=== PATIENT | male | born 1945 | race Hispanic/Latino ===

== ENCOUNTER 2017-11-08 18:36 | Emergency (ER) | payer MEDICARE, MEDICAID ==
[2017-11-08] MEDS ORDERED: Meclizine HCl 25 MG TAB ONE (19:58)
[2017-11-08 20:27] LABS: Hemoglobin 12.5 g/dL (14.0-18.0); Mean Corpuscular HGB CONC 33.4 g/dL (32.0-36.0); Mean Corpuscular Volume 95.8 fL (78.0-98.0); Mean Platelet Volume 8.2 fL (7.4-10.4); Platelet Count 164 thou/uL (130-400); RBC Distribution Width 13.2 % (11.5-14.5)
[2017-11-08 20:40] LABS: CKMB 0.9 ng/mL (0-6.6); Troponin I Less than 0.010 ng/mL (< 0.028)
[2017-11-08 20:42] LABS: ALT (SGPT) 15 U/L (8-55); AST (SGOT) 25 U/L (5-34); Alkaline Phosphatase 78 U/L (40-150); Anion Gap 16 mmol/L (10-20); BUN (Urea Nitrogen) 44 mg/dL (8.4-25.7); Bilirubin, Total 0.3 mg/dL (0.2-1.2); Calc. Creatinine Clearance 0 mL/min (70-130); Calcium 9.5 mg/dL (7.8-10.44); Carbon Dioxide 32 mmol/L (23-31); Chloride 97 mmol/L (98-107); Estimated GFR-MDRD 7; Globulin 3.8 g/dL (2.4-3.5); Glucose 107 mg/dL (83-110); Potassium 5.3 mmol/L (3.5-5.1); Protein, Total 7.8 g/dL (5.8-8.1); Sodium 140 mmol/L (136-145)
[2017-11-08 20:58] LABS: Band 1 % (5-11); Eosinophils 8 % (0-10); Lymphocytes 32 % (21-51); MDiff Complete? YES; Monocytes 9 % (0-10); Neutrophil 50 % (42-75)
--- NOTE | 2017-11-08 21:25 | CT ---
NONCONTRAST CT HEAD: 11/08/17 HISTORY: Vertigo and dizziness. History of renal failure. COMPARISON: 07/11/10. FINDINGS: There is no evidence of acute infarction, hemorrhage, mass effect, or midline shift. The ventricular system is normal in size, shape and position. A mucous retention cyst is present in the right maxilla ry antrum. Mastoid air cells are clear. There has been no interval change from the prior exam. IMPRESSION: No acute intracranial abnormality is demonstrated. POS: PANFILO
== END 2017-11-08 22:36 | disposition home or self-care (01) ==
LOC: ERS 18:36
DX: R42 Dizziness and giddiness (principal); N18.6 End stage renal disease; Z99.2 Dependence on renal dialysis
CPT/HCPCS: 36415; 70450; 80053; 82553; 84484; 85025; 93005

== ENCOUNTER 2020-03-27 11:07 | Emergency (ER) | payer MEDICAID, MEDICARE, OTHER ==
[2020-03-27 23:54] LABS: SARS-CoV-2 PCR by NAA DETECTED (NotDetected)
== END 2020-03-27 12:44 | disposition home or self-care (01) ==
LOC: ERS 11:07
DX: U07.1 COVID-19 (principal); N18.6 End stage renal disease; Z99.2 Dependence on renal dialysis
CPT/HCPCS: 87635; 99283; U0003; U0005

== ENCOUNTER 2020-04-05 09:54 | Emergency (ER) | payer MEDICARE, OTHER ==
[2020-04-05] MEDS ORDERED: Acetaminophen 500 MG TAB ONE (11:45)
[2020-04-05] MEDS ORDERED: Ondansetron ODT 4 MG TAB ONE (11:45)
[2020-04-05 12:20] LABS: #Eosinphils 0.2 thou/uL (0.0-0.7); #Lymphocytes 0.8 thou/uL (1.20-3.40); #Monocytes 0.8 thou/uL (0.11-0.59); #Neutrophils 4.8 thou/uL (1.40-6.50); %Basophils 0.3 % (0.0-1.0); %Eosinophils 2.9 % (0.0-10.0); %Lymphocytes 12.8 % (21.0-51.0); Hemoglobin 12.1 g/dL (14.0-18.0); Mean Corpuscular HGB CONC 33.4 g/dL (32.0-36.0); Mean Corpuscular Hemoglobin 33.2 pg (27.0-31.0); Mean Corpuscular Volume 99.1 fL (78.0-98.0); Mean Platelet Volume 7.4 fL (7.4-10.4); Platelet Count 278 thou/uL (130-400); RBC Distribution Width 11.9 % (11.5-14.5); Red Blood Cell (RBC) Count 3.66 mill/uL (4.70-6.10); White Blood Cell (WBC) Count 6.6 thou/uL (4.8-10.8)
[2020-04-05 12:39] LABS: ALT (SGPT) 15 U/L (8-55); AST (SGOT) 22 U/L (5-34); Albumin 3.4 g/dL (3.4-4.8); Alkaline Phosphatase 62 U/L (40-110); Anion Gap 16 mmol/L (10-20); BUN (Urea Nitrogen) 36 mg/dL (8.4-25.7); Bilirubin, Total 0.7 mg/dL (0.2-1.2); Calc. Creatinine Clearance 0 mL/min (70-130); Calcium 7.9 mg/dL (7.8-10.44); Carbon Dioxide 27 mmol/L (23-31); Chloride 99 mmol/L (98-107); Globulin 3.8 g/dL (2.4-3.5); Glucose 98 mg/dL (83-110); Potassium 4.4 mmol/L (3.5-5.1); Protein, Total 7.2 g/dL (5.8-8.1); Sodium 138 mmol/L (136-145)
== END 2020-04-05 14:05 | disposition home or self-care (01) ==
LOC: ERS 09:54
DX: U07.1 COVID-19 (principal); N18.6 End stage renal disease
CPT/HCPCS: 36415; 70450; 80053; 85025; 93005; Q0162

== ENCOUNTER 2021-02-05 18:01 | Emergency (ER) | payer MEDICARE, OTHER ==
[2021-02-05 19:47] LABS: Hemoglobin 12.7 g/dL (14.0-18.0); Mean Corpuscular HGB CONC 34.3 g/dL (32.0-36.0); Mean Corpuscular Hemoglobin 34.7 pg (27.0-31.0); Mean Platelet Volume 8.6 fL (7.4-10.4); Platelet Count 125 thou/uL (130-400); RBC Distribution Width 13.4 % (11.5-14.5); Red Blood Cell (RBC) Count 3.66 mill/uL (4.70-6.10); White Blood Cell (WBC) Count 5.4 thou/uL (4.8-10.8)
[2021-02-05 19:56] LABS: ALT (SGPT) 18 U/L (8-55); AST (SGOT) 28 U/L (5-34); Albumin 3.8 g/dL (3.4-4.8); Alkaline Phosphatase 85 U/L (40-110); Anion Gap 15 mmol/L (10-20); BUN (Urea Nitrogen) 39 mg/dL (8.4-25.7); Bilirubin, Total 0.3 mg/dL (0.2-1.2); Calc. Creatinine Clearance 0 mL/min (70-130); Calcium 8.1 mg/dL (7.8-10.44); Carbon Dioxide 29 mmol/L (23-31); Chloride 102 mmol/L (98-107); Globulin 3.6 g/dL (2.4-3.5); Glucose 114 mg/dL (83-110); Potassium 5.4 mmol/L (3.5-5.1); Protein, Total 7.4 g/dL (5.8-8.1); Sodium 141 mmol/L (136-145)
[2021-02-05 20:15] LABS: Eosinophils 5 % (0-10); Lymphocytes 24 % (21-51); MDiff Complete? YES; Monocytes 14 % (0-10); Neutrophil 55 % (42-75); Reactive Lymphocytes 1 % (0-10)
[2021-02-05] MEDS ORDERED: Meclizine HCl 25 MG TAB ONE (20:41)
[2021-02-05] MEDS ORDERED: hydrALAZINE 25 MG TAB ONE (20:41)
== END 2021-02-05 21:29 | disposition home or self-care (01) ==
LOC: ERS 18:01
DX: I12.0 Hypertensive chronic kidney disease with stage 5 chronic kidney disease or end stage renal disease (principal); N18.6 End stage renal disease; R42 Dizziness and giddiness; Z99.2 Dependence on renal dialysis
CPT/HCPCS: 36415; 71045; 80053; 84484; 85025; 93005

== ENCOUNTER 2021-02-07 07:38 | Emergency (ER) | payer MEDICARE, OTHER ==
[2021-02-07] MEDS ORDERED: Ondansetron ODT 4 MG TAB ONE (07:56)
[2021-02-07 08:26] LABS: #Basophils 0.1 thou/uL (0.0-0.2); #Eosinphils 0.3 thou/uL (0.0-0.7); #Lymphocytes 1.6 thou/uL (1.20-3.40); #Monocytes 0.6 thou/uL (0.11-0.59); #Neutrophils 2.7 thou/uL (1.40-6.50); %Eosinophils 5.6 % (0.0-10.0); %Lymphocytes 30.5 % (21.0-51.0); %Monocytes 11.8 % (0.0-10.0); %Neutrophils 51.1 % (42.0-75.0); Hemoglobin 12.4 g/dL (14.0-18.0); Mean Corpuscular HGB CONC 33.5 g/dL (32.0-36.0); Mean Corpuscular Hemoglobin 34.1 pg (27.0-31.0); Mean Platelet Volume 7.7 fL (7.4-10.4); Platelet Count 124 thou/uL (130-400); RBC Distribution Width 13.2 % (11.5-14.5); Red Blood Cell (RBC) Count 3.64 mill/uL (4.70-6.10); White Blood Cell (WBC) Count 5.2 thou/uL (4.8-10.8)
[2021-02-07 08:48] LABS: ALT (SGPT) 17 U/L (8-55); AST (SGOT) 22 U/L (5-34); Albumin 3.6 g/dL (3.4-4.8); Alkaline Phosphatase 75 U/L (40-110); Anion Gap 15 mmol/L (10-20); BUN (Urea Nitrogen) 27 mg/dL (8.4-25.7); Bilirubin, Total 0.5 mg/dL (0.2-1.2); Calc. Creatinine Clearance 0 mL/min (70-130); Calcium 8.6 mg/dL (7.8-10.44); Carbon Dioxide 27 mmol/L (23-31); Chloride 98 mmol/L (98-107); Globulin 3.6 g/dL (2.4-3.5); Glucose 99 mg/dL (83-110); Potassium 4.5 mmol/L (3.5-5.1); Protein, Total 7.2 g/dL (5.8-8.1); Sodium 135 mmol/L (136-145)
[2021-02-07 10:17] LABS: Troponin I 0.018 ng/mL (< 0.028)
== END 2021-02-07 10:59 | disposition home or self-care (01) ==
LOC: ERS 07:38
DX: R11.0 Nausea (principal); R42 Dizziness and giddiness; I12.0 Hypertensive chronic kidney disease with stage 5 chronic kidney disease or end stage renal disease; N18.6 End stage renal disease; I44.0 Atrioventricular block, first degree; R61 Generalized hyperhidrosis; Z99.2 Dependence on renal dialysis; Z79.82 Long term (current) use of aspirin; Z79.899 Other long term (current) drug therapy
CPT/HCPCS: 36415; 80053; 84484; 85025; 93005; Q0162

== ENCOUNTER 2021-02-12 06:31 | Emergency (ER) | payer OTHER ==
[2021-02-12 07:58] LABS: #Basophils 0.1 thou/uL (0.0-0.2); #Eosinphils 0.2 thou/uL (0.0-0.7); #Lymphocytes 1.3 thou/uL (1.20-3.40); #Monocytes 0.5 thou/uL (0.11-0.59); #Neutrophils 2.8 thou/uL (1.40-6.50); %Basophils 1.1 % (0.0-1.0); %Eosinophils 3.7 % (0.0-10.0); %Lymphocytes 26.6 % (21.0-51.0); %Monocytes 9.5 % (0.0-10.0); Hemoglobin 12.6 g/dL (14.0-18.0); Mean Corpuscular HGB CONC 33.5 g/dL (32.0-36.0); Mean Corpuscular Hemoglobin 33.6 pg (27.0-31.0); Mean Platelet Volume 8.5 fL (7.4-10.4); Platelet Count 102 thou/uL (130-400); RBC Distribution Width 13.1 % (11.5-14.5); Red Blood Cell (RBC) Count 3.75 mill/uL (4.70-6.10); White Blood Cell (WBC) Count 4.8 thou/uL (4.8-10.8)
[2021-02-12 08:10] LABS: ALT (SGPT) 13 U/L (8-55); AST (SGOT) 22 U/L (5-34); Albumin 3.7 g/dL (3.4-4.8); Alkaline Phosphatase 72 U/L (40-110); Anion Gap 18 mmol/L (10-20); BUN (Urea Nitrogen) 35 mg/dL (8.4-25.7); Bilirubin, Total 0.6 mg/dL (0.2-1.2); Calc. Creatinine Clearance 0 mL/min (70-130); Calcium 8.1 mg/dL (7.8-10.44); Carbon Dioxide 25 mmol/L (23-31); Chloride 98 mmol/L (98-107); Globulin 3.3 g/dL (2.4-3.5); Glucose 94 mg/dL (83-110); Potassium 5.2 mmol/L (3.5-5.1); Sodium 136 mmol/L (136-145)
[2021-02-12] MEDS ORDERED: Acetaminophen 500 MG TAB ONE (09:10)
[2021-02-12] MEDS ORDERED: Meclizine HCl 25 MG TAB ONE (09:10)
[2021-02-12] MEDS ORDERED: Ibuprofen 800 MG TAB ONE (10:35)
== END 2021-02-12 10:39 | disposition home or self-care (01) ==
LOC: ERS 06:31
DX: R51.9 Headache, unspecified (principal); I12.0 Hypertensive chronic kidney disease with stage 5 chronic kidney disease or end stage renal disease; N18.6 End stage renal disease; Z99.2 Dependence on renal dialysis; Z79.899 Other long term (current) drug therapy
CPT/HCPCS: 36415; 70450; 80053; 84484; 85025; 93005

== ENCOUNTER 2021-03-26 10:37 | Emergency (ER) | payer OTHER | END 2021-03-26 13:45 | disposition home or self-care (01) | LOC: ERS 10:37 | DX: K08.89 Other specified disorders of teeth and supporting structures (principal); I12.0 Hypertensive chronic kidney disease with stage 5 chronic kidney disease or end stage renal disease; N18.6 End stage renal disease; Z99.2 Dependence on renal dialysis | CPT/HCPCS: 70450 ==

== ENCOUNTER 2021-03-28 18:15 | Emergency (ER) | payer OTHER ==
[2021-03-28] MEDS ORDERED: hydrALAZINE 20 MG/ML VIAL ONE (19:02)
[2021-03-28 20:12] LABS: #Eosinphils 0.1 thou/uL (0.0-0.7); #Lymphocytes 1.1 thou/uL (1.20-3.40); #Monocytes 0.7 thou/uL (0.11-0.59); #Neutrophils 3.1 thou/uL (1.40-6.50); %Basophils 0.1 % (0.0-1.0); %Eosinophils 2.5 % (0.0-10.0); %Lymphocytes 21.8 % (21.0-51.0); %Monocytes 14.1 % (0.0-10.0); %Neutrophils 61.5 % (42.0-75.0); Hemoglobin 11.7 g/dL (14.0-18.0); Mean Corpuscular Volume 99.9 fL (78.0-98.0); Mean Platelet Volume 8.2 fL (7.4-10.4); Platelet Count 128 thou/uL (130-400); RBC Distribution Width 12.9 % (11.5-14.5); Red Blood Cell (RBC) Count 3.67 mill/uL (4.70-6.10)
[2021-03-28 20:38] LABS: ALT (SGPT) 12 U/L (8-55); AST (SGOT) 22 U/L (5-34); Albumin 3.6 g/dL (3.4-4.8); Alkaline Phosphatase 75 U/L (40-110); Anion Gap 15 mmol/L (10-20); BUN (Urea Nitrogen) 26 mg/dL (8.4-25.7); Bilirubin, Total 0.4 mg/dL (0.2-1.2); Calc. Creatinine Clearance 0 mL/min (70-130); Calcium 8.3 mg/dL (7.8-10.44); Carbon Dioxide 27 mmol/L (23-31); Chloride 97 mmol/L (98-107); Globulin 3.2 g/dL (2.4-3.5); Glucose 114 mg/dL (83-110); Potassium 4.4 mmol/L (3.5-5.1); Protein, Total 6.8 g/dL (5.8-8.1); Sodium 135 mmol/L (136-145)
== END 2021-03-28 21:43 | disposition home or self-care (01) ==
LOC: ERS 18:15
DX: I12.0 Hypertensive chronic kidney disease with stage 5 chronic kidney disease or end stage renal disease (principal); N18.6 End stage renal disease; Z99.2 Dependence on renal dialysis
CPT/HCPCS: 36415; 80053; 85025; 93005; 96374; J0360

== ENCOUNTER 2021-04-02 18:11 | Emergency (ER) | payer OTHER ==
[2021-04-02 20:10] LABS: Mean Corpuscular HGB CONC 32.4 g/dL (32.0-36.0); Mean Corpuscular Volume 98.8 fL (78.0-98.0); Mean Platelet Volume 9.3 fL (7.4-10.4); Platelet Count 95 thou/uL (130-400); RBC Distribution Width 13.1 % (11.5-14.5); Red Blood Cell (RBC) Count 4.07 mill/uL (4.70-6.10); White Blood Cell (WBC) Count 5.9 thou/uL (4.8-10.8)
[2021-04-02 20:14] LABS: Eosinophils 5 % (0-10); Lymphocytes 20 % (21-51); MDiff Complete? YES; Monocytes 13 % (0-10); Neutrophil 62 % (42-75); Platelet Morphology Comment Appears Decreased
[2021-04-02 20:22] LABS: Albumin 3.7 g/dL (3.4-4.8)
[2021-04-02 20:23] LABS: Chloride 100 mmol/L (98-107); Potassium 5.5 mmol/L (3.5-5.1); Sodium 136 mmol/L (136-145)
[2021-04-02 20:24] LABS: Calcium 8.5 mg/dL (7.8-10.44); Glucose 104 mg/dL (83-110)
[2021-04-02 20:25] LABS: Protein, Total 7.7 g/dL (5.8-8.1)
[2021-04-02 20:26] LABS: Anion Gap 16 mmol/L (10-20); Bilirubin, Total 0.4 mg/dL (0.2-1.2); Carbon Dioxide 26 mmol/L (23-31)
[2021-04-02 20:27] LABS: Alkaline Phosphatase 79 U/L (40-110)
[2021-04-02 20:28] LABS: Calc. Creatinine Clearance 0 mL/min (70-130)
[2021-04-02 20:29] LABS: BUN (Urea Nitrogen) 29 mg/dL (8.4-25.7)
[2021-04-02 20:30] LABS: ALT (SGPT) 17 U/L (8-55); AST (SGOT) 42 U/L (5-34)
[2021-04-02 20:31] LABS: Lipase 57 U/L (8-78)
[2021-04-02] MEDS ORDERED: Ondansetron ODT 4 MG TAB ONE (22:42)
[2021-04-02] MEDS ORDERED: Ketorolac Tromethamine 30 MG/ML VIAL ONE ×2 (22:42)
== END 2021-04-02 23:13 | disposition home or self-care (01) ==
LOC: ERS 18:11
DX: I12.0 Hypertensive chronic kidney disease with stage 5 chronic kidney disease or end stage renal disease (principal); N18.6 End stage renal disease; Z99.2 Dependence on renal dialysis
CPT/HCPCS: 36415; 74176; 80053; 83690; 85025; 96372; J1885; Q0162

== ENCOUNTER 2021-06-14 18:36 | Emergency (ER) | payer OTHER ==
[2021-06-14 20:09] LABS: #Eosinphils 0.2 thou/uL (0.0-0.7); #Lymphocytes 1.3 thou/uL (1.20-3.40); #Monocytes 0.7 thou/uL (0.11-0.59); %Basophils 0.2 % (0.0-1.0); %Eosinophils 4.7 % (0.0-10.0); %Lymphocytes 25.1 % (21.0-51.0); %Monocytes 13.1 % (0.0-10.0); %Neutrophils 56.8 % (42.0-75.0); Hemoglobin 10.7 g/dL (14.0-18.0); Mean Corpuscular HGB CONC 33.7 g/dL (32.0-36.0); Mean Corpuscular Hemoglobin 34.1 pg (27.0-31.0); Mean Platelet Volume 7.7 fL (7.4-10.4); Platelet Count 119 thou/uL (130-400); RBC Distribution Width 13.3 % (11.5-14.5); Red Blood Cell (RBC) Count 3.13 mill/uL (4.70-6.10); White Blood Cell (WBC) Count 5.3 thou/uL (4.8-10.8)
[2021-06-14 20:25] LABS: ALT (SGPT) 11 U/L (8-55); AST (SGOT) 21 U/L (5-34); Albumin 3.6 g/dL (3.4-4.8); Alkaline Phosphatase 66 U/L (40-110); Anion Gap 21 mmol/L (10-20); BUN (Urea Nitrogen) 77 mg/dL (8.4-25.7); Bilirubin, Total 0.4 mg/dL (0.2-1.2); Calc. Creatinine Clearance 0 mL/min (70-130); Calcium 8.1 mg/dL (7.8-10.44); Carbon Dioxide 20 mmol/L (23-31); Chloride 101 mmol/L (98-107); Glucose 108 mg/dL (83-110); Lipase 51 U/L (8-78); Potassium 6.1 mmol/L (3.5-5.1); Protein, Total 6.6 g/dL (5.8-8.1); Sodium 136 mmol/L (136-145)
[2021-06-14 20:47] LABS: CKMB 1.6 ng/mL (0-6.6)
== END 2021-06-14 21:00 | disposition home or self-care (01) ==
LOC: ERS 18:36
DX: I12.0 Hypertensive chronic kidney disease with stage 5 chronic kidney disease or end stage renal disease (principal); E87.5 Hyperkalemia; N18.6 End stage renal disease; Z99.2 Dependence on renal dialysis; Z79.899 Other long term (current) drug therapy
CPT/HCPCS: 36415; 71045; 80053; 82553; 83690; 83880; 84484; 85025; 93005

== ENCOUNTER 2021-08-08 06:34 | Emergency (ER) | payer OTHER ==
[2021-08-08] MEDS ORDERED: Acetaminophen 500 MG TAB ONE (07:09)
[2021-08-08 08:35] LABS: Hemoglobin 13.1 g/dL (14.0-18.0); Mean Corpuscular HGB CONC 31.5 g/dL (32.0-36.0); Mean Corpuscular Hemoglobin 32.2 pg (27.0-31.0); Mean Platelet Volume 9.1 fL (7.4-10.4); Platelet Count 91 thou/uL (130-400); RBC Distribution Width 14.1 % (11.5-14.5); Red Blood Cell (RBC) Count 4.07 mill/uL (4.70-6.10); White Blood Cell (WBC) Count 3.2 thou/uL (4.8-10.8)
[2021-08-08 08:56] LABS: Band 5 % (5-11); Eosinophils 4 % (0-10); Hypochromia SLIGHT = 6-15 cells (100X) (0-5/hpf); Lymphocytes 29 % (21-51); MDiff Complete? YES; Macrocytosis SLIGHT = 6-15 cells (100X) (0-5/hpf); Monocytes 21 % (0-10); Neutrophil 36 % (42-75); Platelet Morphology Comment Appears Decreased; Polychromasia SLIGHT = 2-3 cells (100X) (0-2/hpf); Reactive Lymphocytes 5 % (0-10); Target Cells SLIGHT = 2-5 cells (100X) (0-1/hpf)
[2021-08-08] MEDS ORDERED: Morphine 2 MG/ML VIAL ONE (08:57)
[2021-08-08 09:08] LABS: ALT (SGPT) 11 U/L (8-55); AST (SGOT) 29 U/L (5-34); Albumin 3.3 g/dL (3.4-4.8); Alkaline Phosphatase 58 U/L (40-110); Anion Gap 14 mmol/L (10-20); BUN (Urea Nitrogen) 21 mg/dL (8.4-25.7); Bilirubin, Total 0.5 mg/dL (0.2-1.2); Calc. Creatinine Clearance 0 mL/min (70-130); Calcium 8.1 mg/dL (7.8-10.44); Carbon Dioxide 27 mmol/L (23-31); Chloride 99 mmol/L (98-107); Globulin 3.3 g/dL (2.4-3.5); Glucose 86 mg/dL (83-110); Lipase 31 U/L (8-78); Potassium 4.4 mmol/L (3.5-5.1); Protein, Total 6.6 g/dL (5.8-8.1); Sodium 136 mmol/L (136-145)
== END 2021-08-08 10:54 | disposition home or self-care (01) ==
LOC: ERS 06:34
DX: R10.12 Left upper quadrant pain (principal); I12.0 Hypertensive chronic kidney disease with stage 5 chronic kidney disease or end stage renal disease; N18.6 End stage renal disease; Z99.2 Dependence on renal dialysis; Z79.899 Other long term (current) drug therapy
CPT/HCPCS: 36415; 74176; 80053; 83690; 85025; 96374; J2270

== ENCOUNTER 2021-08-12 21:04 | Emergency (ER) | payer OTHER ==
[2021-08-12 21:42] LABS: #Eosinphils 0.2 thou/uL (0.0-0.7); #Monocytes 0.5 thou/uL (0.11-0.59); #Neutrophils 2.2 thou/uL (1.40-6.50); %Basophils 1.2 % (0.0-1.0); %Eosinophils 5.6 % (0.0-10.0); %Lymphocytes 24.4 % (21.0-51.0); %Monocytes 12.6 % (0.0-10.0); %Neutrophils 56.2 % (42.0-75.0); Hemoglobin 12.9 g/dL (14.0-18.0); Mean Corpuscular Hemoglobin 32.5 pg (27.0-31.0); Mean Corpuscular Volume 98.6 fL (78.0-98.0); Mean Platelet Volume 9.2 fL (7.4-10.4); Platelet Count 87 thou/uL (130-400); Red Blood Cell (RBC) Count 3.97 mill/uL (4.70-6.10); White Blood Cell (WBC) Count 3.9 thou/uL (4.8-10.8)
[2021-08-12] MEDS ORDERED: Lidocaine Viscous Sol 2% 15 ml UD Cup ONE (21:44)
[2021-08-12] MEDS ORDERED: Magnesium 2 GM/50 ML BAG (IN WATER) ONE (21:44)
[2021-08-12] MEDS ORDERED: Dicyclomine 20 MG/2 ML VIAL ONE (21:44)
[2021-08-12] MEDS ORDERED: Mag-Al 1200 mg/1200 mg/30 ML UDCUP ONE (21:45)
[2021-08-12] MEDS ORDERED: Pantoprazole 40 MG VIAL ONE (21:45)
[2021-08-12 22:04] LABS: ALT (SGPT) 12 U/L (8-55); AST (SGOT) 26 U/L (5-34); Albumin 3.3 g/dL (3.4-4.8); Alkaline Phosphatase 56 U/L (40-110); Anion Gap 13 mmol/L (10-20); BUN (Urea Nitrogen) 19 mg/dL (8.4-25.7); Bilirubin, Total 0.6 mg/dL (0.2-1.2); Calc. Creatinine Clearance 0 mL/min (70-130); Calcium 8.3 mg/dL (7.8-10.44); Carbon Dioxide 29 mmol/L (23-31); Chloride 100 mmol/L (98-107); Globulin 3.4 g/dL (2.4-3.5); Glucose 135 mg/dL (83-110); Lipase 24 U/L (8-78); Potassium 3.5 mmol/L (3.5-5.1); Protein, Total 6.7 g/dL (5.8-8.1); Sodium 138 mmol/L (136-145)
[2021-08-12] MEDS ORDERED: Sucralfate 1 GM/10 ML UDCUP ONE (22:57)
== END 2021-08-12 23:03 | disposition home or self-care (01) ==
LOC: ERS 21:04
DX: R10.12 Left upper quadrant pain (principal); I44.0 Atrioventricular block, first degree; I12.0 Hypertensive chronic kidney disease with stage 5 chronic kidney disease or end stage renal disease; N18.6 End stage renal disease; Z99.2 Dependence on renal dialysis; Z79.899 Other long term (current) drug therapy
CPT/HCPCS: 80053; 83690; 85025; 93005; 96372; 96374; C9113; J0500; J3475

== ENCOUNTER 2021-08-24 18:01 | Observation (INO) | payer OTHER ==
[2021-08-24 18:55] LABS: Hemoglobin 13.1 g/dL (14.0-18.0); Mean Corpuscular HGB CONC 31.7 g/dL (32.0-36.0); Mean Corpuscular Hemoglobin 31.5 pg (27.0-31.0); Mean Corpuscular Volume 99.5 fL (78.0-98.0); Mean Platelet Volume 9.9 fL (7.4-10.4); Platelet Count 81 thou/uL (130-400); RBC Distribution Width 14.8 % (11.5-14.5); Red Blood Cell (RBC) Count 4.14 mill/uL (4.70-6.10); White Blood Cell (WBC) Count 4.5 thou/uL (4.8-10.8)
[2021-08-24] MEDS ORDERED: Aspirin Chewable 81 MG TAB ONE (18:55)
[2021-08-24 19:12] LABS: Eosinophils 4 % (0-10); Hypochromia SLIGHT = 6-15 cells (100X) (0-5/hpf); Lymphocytes 16 % (21-51); MDiff Complete? YES; Macrocytosis SLIGHT = 6-15 cells (100X) (0-5/hpf); Monocytes 19 % (0-10); Neutrophil 45 % (42-75); Platelet Morphology Comment Appears Decreased; Polychromasia SLIGHT = 2-3 cells (100X) (0-2/hpf); Reactive Lymphocytes 14 % (0-10); Stomatocytes SLIGHT = 2-5 cells (100X) (0-1/hpf); Target Cells SLIGHT = 2-5 cells (100X) (0-1/hpf)
[2021-08-24 19:22] LABS: ALT (SGPT) 17 U/L (8-55); AST (SGOT) 39 U/L (5-34); Albumin 3.3 g/dL (3.4-4.8); Alkaline Phosphatase 62 U/L (40-110); Anion Gap 20 mmol/L (10-20); BUN (Urea Nitrogen) 45 mg/dL (8.4-25.7); Bilirubin, Total 0.3 mg/dL (0.2-1.2); Calc. Creatinine Clearance 0 mL/min (70-130); Calcium 8.3 mg/dL (7.8-10.44); Carbon Dioxide 23 mmol/L (23-31); Chloride 100 mmol/L (98-107); Globulin 3.1 g/dL (2.4-3.5); Glucose 99 mg/dL (83-110); Potassium 3.9 mmol/L (3.5-5.1); Protein, Total 6.4 g/dL (5.8-8.1); Sodium 139 mmol/L (136-145)
[2021-08-24 19:38] LABS: CKMB 3.7 ng/mL (0-6.6)
[2021-08-24] MEDS ORDERED: Acetaminophen 650 MG Suppository PR PRN (21:55)
[2021-08-24] MEDS ORDERED: Senokot S 8.6-50 MG TAB PO PRN (21:55)
[2021-08-24] MEDS ORDERED: Ondansetron PF 4 MG/2 ML Vial IVP PRN (21:55)
[2021-08-24] MEDS ORDERED: Ondansetron ODT 4 MG TAB PO PRN (21:55)
[2021-08-24] MEDS ORDERED: hydrALAZINE 20 MG/ML VIAL SLOW IVP PRN (21:55)
[2021-08-24 22:00] VITALS: BMI 31.2
[2021-08-24] MEDS: Acetaminophen 325 MG TAB PO PRN (22:38)
[2021-08-25 05:31] LABS: ALT (SGPT) 17 U/L (8-55); AST (SGOT) 29 U/L (5-34); Alkaline Phosphatase 58 U/L (40-110); Anion Gap 17 mmol/L (10-20); BUN (Urea Nitrogen) 52 mg/dL (8.4-25.7); Bilirubin, Total 0.2 mg/dL (0.2-1.2); Calc. Creatinine Clearance 7 mL/min (70-130); Calcium 8.4 mg/dL (7.8-10.44); Carbon Dioxide 25 mmol/L (23-31); Cardiac Risk 2.8 (Less than 4.5); Chloride 101 mmol/L (98-107); Cholesterol 139 mg/dl (< 200 Desired); Glucose 111 mg/dL (83-110); HDL Cholesterol 49 mg/dL (>60 Neg Risk); LDL Cholesterol, Calculated 79 mg/dL; Potassium 3.8 mmol/L (3.5-5.1); Sodium 139 mmol/L (136-145); Triglycerides 57 mg/dL (Less than 150)
[2021-08-25 05:39] LABS: Band 2 % (5-11); Eosinophils 7 % (0-10); Hemoglobin 12.6 g/dL (14.0-18.0); Lymphocytes 27 % (21-51); MDiff Complete? YES; Macrocytosis SLIGHT = 6-15 cells (100X) (0-5/hpf); Mean Corpuscular HGB CONC 32.2 g/dL (32.0-36.0); Mean Corpuscular Hemoglobin 32.3 pg (27.0-31.0); Mean Platelet Volume 9.9 fL (7.4-10.4); Monocytes 15 % (0-10); Neutrophil 44 % (42-75); Platelet Count 79 thou/uL (130-400); Platelet Morphology Comment Appears Decreased; RBC Distribution Width 14.9 % (11.5-14.5); Reactive Lymphocytes 4 % (0-10); Red Blood Cell (RBC) Count 3.89 mill/uL (4.70-6.10); White Blood Cell (WBC) Count 4.9 thou/uL (4.8-10.8)
[2021-08-25 08:13] VITALS: TEMP 96.8
[2021-08-25] MEDS: Acetaminophen 325 MG TAB PO PRN ×2 (08:18→16:14)
[2021-08-25] MEDS: Calcium Acetate 667 MG CAP PO SCH ×3 (08:19→15:32)
[2021-08-25] MEDS ORDERED: Aspirin 81 mg Enteric Coated Tablet PO SCH (09:00)
[2021-08-25] MEDS ORDERED: Heparin 5,000 UNITS/ML VIAL SC SCH (09:00)
[2021-08-25] MEDS ORDERED: Losartan 25 MG TAB PO SCH (09:00)
[2021-08-25] MEDS: hydrALAZINE 25 MG TAB PO SCH ×3 (09:09→16:09)
[2021-08-25] MEDS ORDERED: Fentanyl 100 MCG/2 ML VIAL SLOW IVP SCH (09:45)
[2021-08-25] MEDS ORDERED: predniSONE 50 MG TAB PO SCH (10:00)
[2021-08-25] MEDS ORDERED: valACYclovir 500 MG TAB PO SCH ×2 (10:00→10:15)
[2021-08-25] MEDS ORDERED: predniSONE 20 MG TAB PO SCH (10:15)
[2021-08-25 15:33] VITALS: BP 176/77
[2021-08-25] MEDS ORDERED: Melatonin 3 MG TAB PO SCH (21:00)
[2021-08-25] MEDS ORDERED: Gabapentin 300 MG CAP PO SCH (21:00)
[2021-08-26] MEDS ORDERED: predniSONE 20 MG TAB PO SCH (08:00)
[2021-08-26] MEDS ORDERED: valACYclovir 500 MG TAB PO SCH (09:00)
== END 2021-08-25 16:26 | disposition home or self-care (01) ==
LOC: ERS 18:01 → NEURO 20:08
PROVIDERS: ADMIT Family Medicine; ATTEND Family Medicine
DX: G51.0 Bell's palsy (principal); H92.01 Otalgia, right ear; I44.0 Atrioventricular block, first degree; R94.31 Abnormal electrocardiogram [ECG] [EKG]; I12.0 Hypertensive chronic kidney disease with stage 5 chronic kidney disease or end stage renal disease; N18.6 End stage renal disease; D63.1 Anemia in chronic kidney disease; D69.6 Thrombocytopenia, unspecified; M19.90 Unspecified osteoarthritis, unspecified site; G47.33 Obstructive sleep apnea (adult) (pediatric); E78.5 Hyperlipidemia, unspecified; Z87.891 Personal history of nicotine dependence; Z79.899 Other long term (current) drug therapy; Z88.0 Allergy status to penicillin; Z88.3 Allergy status to other anti-infective agents; Z91.040 Latex allergy status; Z99.2 Dependence on renal dialysis; Z20.822 Contact with and (suspected) exposure to COVID-19
CPT/HCPCS: 70450; 70551; 80053 ×2; 80061; 82553; 82607; 82746; 84484; 85025 ×2; 93005; 93880; 96374; 97139 ×3; 97535; 99285; G0378 ×3; U0003; U0005; 36415; 85060; 90935; G0257; J3010; J7512

== ENCOUNTER 2021-09-12 07:00 | Emergency (ER) | payer OTHER, MEDICAID | END 2021-09-12 09:15 | disposition home or self-care (01) | LOC: ERS 07:00 → EEVIPCON 07:00 → ERS 09:15 | DX: I12.0 Hypertensive chronic kidney disease with stage 5 chronic kidney disease or end stage renal disease (principal); N18.6 End stage renal disease; H92.01 Otalgia, right ear; Z87.891 Personal history of nicotine dependence; Z79.899 Other long term (current) drug therapy | CPT/HCPCS: 70450 ==

== ENCOUNTER 2021-09-27 07:34 | Emergency (ER) | payer OTHER ==
[2021-09-27 09:23] LABS: ALT (SGPT) 13 U/L (8-55); AST (SGOT) 22 U/L (5-34); Albumin 3.1 g/dL (3.4-4.8); Alkaline Phosphatase 77 U/L (40-110); Anion Gap 15 mmol/L (10-20); BUN (Urea Nitrogen) 27 mg/dL (8.4-25.7); Bilirubin, Total 0.5 mg/dL (0.2-1.2); Calc. Creatinine Clearance 0 mL/min (70-130); Calcium 8.1 mg/dL (7.8-10.44); Carbon Dioxide 28 mmol/L (23-31); Chloride 102 mmol/L (98-107); Estimated GFR 7; Globulin 2.9 g/dL (2.4-3.5); Glucose 101 mg/dL (83-110); Magnesium 2.5 mg/dL (1.6-2.6); Potassium 4.7 mmol/L (3.5-5.1); Sodium 140 mmol/L (136-145)
[2021-09-27 09:46] LABS: Eosinophils 5 % (0-10); Hemoglobin 9.8 g/dL (14.0-18.0); Lymphocytes 36 % (21-51); Mean Corpuscular HGB CONC 32.1 g/dL (32.0-36.0); Mean Corpuscular Hemoglobin 31.9 pg (27.0-31.0); Mean Corpuscular Volume 99.5 fL (78.0-98.0); Mean Platelet Volume 8.7 fL (7.4-10.4); Monocytes 10 % (0-10); Neutrophil 48 % (42-75); Platelet Count 107 thou/uL (130-400); Reactive Lymphocytes 1 % (0-10); Red Blood Cell (RBC) Count 3.06 mill/uL (4.70-6.10); White Blood Cell (WBC) Count 4.3 thou/uL (4.8-10.8)
[2021-09-27 09:47] LABS: MDiff Complete? YES; Platelet Morphology Comment Appears Decreased; RBC Morphology Normal
[2021-09-27] MEDS ORDERED: Aspirin Chewable 81 MG TAB ONE (10:25)
== END 2021-09-27 12:10 | disposition short-term general hospital (02) ==
LOC: ERS 07:34
DX: R27.0 Ataxia, unspecified (principal); I12.0 Hypertensive chronic kidney disease with stage 5 chronic kidney disease or end stage renal disease; N18.6 End stage renal disease; Z99.2 Dependence on renal dialysis; Z79.899 Other long term (current) drug therapy
CPT/HCPCS: 36415; 70450; 71045; 80053; 83735; 84436; 84443; 85025; 93005; 94760

== ENCOUNTER 2022-01-29 21:38 | Emergency (ER) | payer OTHER, SELFPAY ==
[2022-01-29] MEDS ORDERED: Lidocaine 1% w/Epinephrine 1:100K 20 ML VIAL ONE (21:43)
[2022-01-29] MEDS ORDERED: Lidocaine 1% MPF 2 ML VIAL ONE (21:44)
[2022-01-29 22:46] LABS: #Eosinphils 0.4 thou/uL (0.0-0.7); #Monocytes 0.6 thou/uL (0.11-0.59); %Basophils 1.2 % (0.0-1.0); %Eosinophils 10.4 % (0.0-10.0); %Monocytes 14.6 % (0.0-10.0); %Neutrophils 48.9 % (42.0-75.0); Hemoglobin 11.7 g/dL (14.0-18.0); Mean Corpuscular HGB CONC 33.4 g/dL (32.0-36.0); Mean Corpuscular Hemoglobin 32.7 pg (27.0-31.0); Mean Platelet Volume 9.9 fL (7.4-10.4); Platelet Count 85 10x3/uL (130-400); RBC Distribution Width 13.7 % (11.5-14.5); Red Blood Cell (RBC) Count 3.58 mill/uL (4.70-6.10); White Blood Cell (WBC) Count 4.1 10x3/uL (4.8-10.8)
[2022-01-29 22:57] LABS: MDiff Complete? YES; Platelet Morphology Comment Appears Decreased; Polychromasia SLIGHT = 2-3 cells (100X) (0-2/hpf)
== END 2022-01-29 23:10 | disposition home or self-care (01) ==
LOC: ERS 21:38
DX: D69.6 Thrombocytopenia, unspecified (principal); I12.0 Hypertensive chronic kidney disease with stage 5 chronic kidney disease or end stage renal disease; N18.6 End stage renal disease; Z99.2 Dependence on renal dialysis; Z87.891 Personal history of nicotine dependence
CPT/HCPCS: 36415; 85025; 99284

== ENCOUNTER 2022-07-07 09:25 | Outpatient (CLI) | payer OTHER | END 2022-07-07 09:26 | disposition home or self-care (01) | LOC: BICRAD 09:25 | PROVIDERS: ATTEND Family Medicine | DX: M79.601 Pain in right arm (principal); M54.41 Lumbago with sciatica, right side; M47.816 Spondylosis without myelopathy or radiculopathy, lumbar region; M43.16 Spondylolisthesis, lumbar region | CPT/HCPCS: 72100 ==

== ENCOUNTER 2023-10-01 10:52 | Emergency (ER) | payer OTHER ==
[2023-10-01 12:28] LABS: SARS-CoV-2 E Target Negative; SARS-CoV-2 N2 Target Negative; SARS-CoV-2 NAA Rapid Test Not Detected (NotDetected); SARS-CoV-2 RdRP gene Negative
[2023-10-01 12:34] LABS: #Basophils 0.04 10x3/uL (0.0-0.2); %Basophils 0.7 % (0.0-1.0); %Eosinophils 4.4 % (0.0-10.0); %Lymphocytes 29.3 % (21.0-51.0); %Monocytes 12.6 % (0.0-10.0); %Neutrophils 52.8 % (42.0-75.0); Hematocrit 33.1 % (42.0-52.0); Mean Corpuscular HGB CONC 33.2 g/dL (32.0-36.0); Mean Corpuscular Hemoglobin 32.5 pg (27.0-31.0); Mean Corpuscular Volume 97.9 fL (78.0-98.0); Mean Platelet Volume 10.6 fL (7.4-10.4); Platelet Count 108 10x3/uL (130-400); RBC Distribution Width 14.7 % (11.5-14.5); Red Blood Cell (RBC) Count 3.38 mill/uL (4.70-6.10)
[2023-10-01 13:04] LABS: ALT (SGPT) 9 U/L (8-55); AST (SGOT) 24 U/L (5-34); Albumin 3.3 g/dL (3.4-4.8); Alkaline Phosphatase 56 U/L (40-110); Anion Gap 16 mmol/L (10-20); BUN (Urea Nitrogen) 23 mg/dL (8.4-25.7); Bilirubin, Total 0.5 mg/dL (0.2-1.2); Calc. Creatinine Clearance 0 mL/min (70-130); Calcium 8.6 mg/dL (7.8-10.44); Carbon Dioxide 27 mmol/L (23-31); Chloride 100 mmol/L (98-107); Estimated GFR 10; Globulin 3.6 g/dL (2.4-3.5); Glucose 89 mg/dL (83-110); Lipase 31 U/L (8-78); Potassium 5.6 mmol/L (3.5-5.1); Protein, Total 6.9 g/dL (5.8-8.1); Sodium 137 mmol/L (136-145)
== END 2023-10-01 15:00 | disposition home or self-care (01) ==
LOC: ERS 10:52
DX: R10.84 Generalized abdominal pain (principal); I12.0 Hypertensive chronic kidney disease with stage 5 chronic kidney disease or end stage renal disease; N18.6 End stage renal disease; Z99.2 Dependence on renal dialysis; Z87.891 Personal history of nicotine dependence
CPT/HCPCS: 71045; 74176; 80053; 83690; 85025; U0002; 36416

== ENCOUNTER 2024-01-11 08:45 | Outpatient (CLI) | payer OTHER | END 2024-01-11 08:46 | disposition home or self-care (01) | LOC: BICRAD 08:45 | PROVIDERS: ATTEND Family Medicine | DX: J90 Pleural effusion, not elsewhere classified (principal); J98.11 Atelectasis | CPT/HCPCS: 71046 ==